=== PATIENT | male | born 1975 | race Caucasian/White ===

== ENCOUNTER 2020-08-17 19:03 | Emergency (ER) | payer BC ==
[~2020-08-17] VITALS: Ht 172.7 cm; Wt 83.9 kg
[2020-08-17] MEDS ORDERED: WELLBUTRIN SR150 MG PO (19:11)
[2020-08-17] MEDS ORDERED: LISINOPRIL10 MG PO (19:11)
[2020-08-17 20:13] VITALS: BP 155/89
== END 2020-08-17 20:13 | disposition home or self-care (01) ==
LOC: M.ERS 19:03
DX: R09.89 Other specified symptoms and signs involving the circulatory and respiratory systems (principal); Z20.828 Contact with and (suspected) exposure to other viral communicable diseases